=== PATIENT | female | born 1995 ===

== ENCOUNTER 2021-07-21 22:56 | Emergency (ER) | payer OTHER ==
[~2021-07-21] VITALS: Ht 165.1 cm; Wt 48.1 kg
[2021-07-21] MEDS ORDERED: ZYRTEC10 MG (23:13)
[2021-07-22] MEDS ORDERED: DUI500 PO (00:32)
[2021-07-22] MEDS ORDERED: TUSNEL LIQUID178 ML PO (00:32)
== END 2021-07-22 00:43 | disposition home or self-care (01) ==
LOC: ER 22:56
DX: J06.9 Acute upper respiratory infection, unspecified (principal)